=== PATIENT | male | born 1975 | race Caucasian/White ===

== ENCOUNTER 2017-01-03 16:32 | Emergency (ER) | payer BC ==
[2017-01-03 17:03] LABS: Hematocrit 48.8 % (42.0-52.0); Hemoglobin 16.6 gm/dL (13.5-18.0); Mean Cell Volume 84.9 fl (78-100); Mean Corpuscular Hemoglobin 28.9 pg (27-31); Mean Platelet Volume 10.4 fl (6.0-9.5); Neutrophil # 7.8 K/mm3 (1.3-6.0); Neutrophil % 68.7 % (42-75.0); Platelet Count 322 K/mm3 (150-450); Red Blood Count 5.75 M/mm3 (4.7-6.0); Red Cell Distribution Width 12.5 % (11.5-14.0); White Blood Count 11.3 K/mm3 (4.0-10.5)
[2017-01-03 17:06] LABS: Urine Bilirubin Negative (NEGATIVE); Urine Blood 25 /ul (NEGATIVE); Urine Ketone Negative (NEGATIVE); Urine Nitrite Negative (NEGATIVE); Urine Protein Negative (NEGATIVE); Urine Specific Gravity >=1.030 SP.GR. (1.005-1.030); Urine Urobilinogen Normal (NORMAL)
[2017-01-03 17:15] LABS: Urine Appearance Clear; Urine Bacteria None Seen; Urine Color Yellow; Urine RBC 0-5 /hpf (0-5); Urine WBC None Seen /hpf (0-5)
[2017-01-03 17:19] LABS: Albumin * 4.1 gm/dl (3.4-5.0); Anion Gap 10.3 mmol/L (6.8-13.8); Bilirubin, Total 0.6 mg/dL (0.0-1.1); Calcium * 9.4 mg/dL (7.9-10.9); Carbon Dioxide 31.4 mmol/L (24-32.6); Potassium 3.7 mmol/L (3.4-4.6)
[2017-01-03 18:46] VITALS: BP 131/76
--- NOTE | 2017-01-03 18:46 | ERNOTE ---
Back Pain ER HPI Date of Service: 01/03/17 Presenting Symptoms: other - back pain Time Seen by Provider: 01/03/17 16:47 Source: patient Exam Limitations: no limitations Immunizations: IMMUNIZATION HX Immunizations Up to Date Yes History of Influenza Vaccine Yes Hx Pneumococcal Vaccination No Allergies/Adverse Reactions: Allergies No Known Allergies Allergy (Verified 01/03/17 16:44) Home Medications: HOME MEDICATIONS Hydrocodone/Acetaminophen [Davis 5-325 Tablet] 1 tab PO Q6H PRN #12 tab [Last Taken Unknown] Lisinopril [Zestril] 10 mg PO DAILY 01/03/17 [Last Taken Unknown] Omeprazole [Prilosec] 20 mg PO DAILY 01/03/17 [Last Taken Unknown] Tamsulosin HCl [Flomax] 0.4 mg PO DAILY@1800 #7 cap 01/03/17 [Last Taken Unknown ] Narrative: Patient relates that he was sent over from the walk in clinic. He has been having right back pain since Sunday. He had acute onset of severe right sided back pain sunday. Initially 07/05. He relates that it is overall better but did not go entirely away so he went to the walk in clinic today. No fever or vomiting. No abdominal pain. No dysuria or fever. No trauma. Nothign makes it better or worse. Will spontaneously worsen then get better. No CP or SOB. Timing: Reports: intermittent Quality/Severity: Reports: other - currently imprpoved, mild Location of pain: Reports: other - right flank Activities at Onset: Reports: none Recent Injury?: Reports: no Possible Precipitating Factor: Reports: none Modifying Factors - (Improves): Reports: nothing Modifying Factors - (Worsens): Reports: nothing Associated Symptoms: Denies: fever/chills, constipation/incontinence, nausea/ vomiting, problems urinating, numbess/weakness in legs Review of Systems - Review of Systems Constitutional: Absent: fever Respiratory: Absent: shortness of breath Cardiology: Absent: chest pain Gastrointestinal/Abdominal: Absent: abdominal pain Genitourinary: Absent: dysuria - Patient's Past Medical History Patient History - Medical: GERD Patient History - Cardiac/Respiratory: Hypertension, Hyperlipidemia Patient History - Cancer: No Hx of Cancer Patient History - Surgical Procedures: Other - Social History Smoking Status: Current every day smoker Have you smoked in the past 12 months: Yes Alcohol Use: occasionally - Immunizations Immunizations Up to Date: Yes Hx Pneumococcal Vaccination: No History of Influenza Vaccine: Yes Physical Exam - Physical Exam General Appearance: Present: alert, no apparent distress Eye Exam: Normal inspection: bilateral, PERRL: bilateral Ears, Nose, Throat: Present: normal ENT inspection Neck: Present: normal inspection Respiratory: Present: no respiratory distress, normal breath sounds, lungs clear Cardiovascular/Chest: Present: regular rate, rhythm Gastrointestinal/Abdominal: Present: normal bowel sounds, nontender, nondistended, soft, no organomegaly Back Exam: Present: no vertebral tenderness, other - mild right CVA tenderness Extremity Exam: Present: normal inspection Neurological Exam: Present: alert, normal mood/affect, no motor/sensory deficits , 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 - Vital Signs Patient's Vital Signs:: I have reviewed the patient's vital signs. Vital Signs: Vital Signs 01/03/17 16:40 Temperature 98 C H Pulse Rate 93 Respiratory 16 Rate Blood Pressure 162/101 O2 Sat by Pulse 97 Oximetry - CT/Ultrasound CT/Ultrasound Narrative: I reviewed prior CT report from today - Progress/Reassessment Chief Complaint: Back Pain Progress Note-Subjective: 01/03/17 18:39 Clinically this is most c/w kidney stone given Hx. No evidence of infection, sepsis or toxicity. However given the CT scan he needs to see urology. Will refer to urology, he needs to call in the morning. I told him that is he is unable to be seen within 48 hours he needs to call me here tomorrow and I will call for him to get him an appointment. I discussed warning signs and reasons to return as well as the need for close f/u. Departure Clinical Impression: Right flank pain - Departure Disposition: Home self-care Condition: Stable Instructions: Flank Pain, [id number] Additional Instructions: Fluids. No driving with pain medications. Strain all urine. Call [facility] in [place] tomorrow and let them know you were seen today and need an appointment. If they are unable to see you before the weekend call me here at the Emergency Department tomorrow and I will work to arrange follow-up for you. Return for fever, vomiting, increased pain or if your condition worsens or changes in any way. Referrals: Nkechi Bryant FNP [Primary Care Provider] - Prescriptions: Hydrocodone/Acetaminophen [Davis 5-325 Tablet] 1 tab PO Q6H PRN #12 tab PRN Reason: Pain Tamsulosin HCl [Flomax] 0.4 mg PO DAILY@1800 #7 cap
== END 2017-01-03 18:55 | disposition home or self-care (01) ==
LOC: ER 16:32
DX: R10.9 Unspecified abdominal pain (principal); M54.9 Dorsalgia, unspecified; F17.210 Nicotine dependence, cigarettes, uncomplicated; K21.9 Gastro-esophageal reflux disease without esophagitis; I10 Essential (primary) hypertension